=== PATIENT | female | born 1960 | race Asian ===

== ENCOUNTER 2024-08-24 10:12 | Outpatient (CLI) | payer OTHER | END 2024-08-24 23:59 | disposition home or self-care (01) | LOC: MRI02 10:12 | PROVIDERS: ATTEND Chiropractor | DX: S33.5XXA Sprain of ligaments of lumbar spine, initial encounter (principal); S46.012A Strain of muscle(s) and tendon(s) of the rotator cuff of left shoulder, initial encounter; S13.4XXA Sprain of ligaments of cervical spine, initial encounter; M19.012 Primary osteoarthritis, left shoulder; M47.26 Other spondylosis with radiculopathy, lumbar region; M50.03 Cervical disc disorder with myelopathy, cervicothoracic region; X58.XXXA Exposure to other specified factors, initial encounter; Y93.89 Activity, other specified; Y92.89 Other specified places as the place of occurrence of the external cause; Y99.8 Other external cause status | CPT/HCPCS: 72148; 73221 ==